=== PATIENT | male | born 1985 ===

== ENCOUNTER 2023-04-16 12:16 | Emergency (ER) | payer SELFPAY ==
[2023-04-16] MEDS ORDERED: Ketorolac Tromethamine 30 MG/ML VIAL ONE (12:47)
== END 2023-04-16 13:06 | disposition home or self-care (01) ==
LOC: ERS 12:16
DX: L03.211 Cellulitis of face (principal); E78.5 Hyperlipidemia, unspecified
CPT/HCPCS: 96372; 99283; J1885